=== PATIENT | male | born 1965 | race African-American/Black ===

== ENCOUNTER 2024-09-17 21:17 | Emergency (ER) | payer OTHER, SELFPAY ==
[2024-09-17 21:25] VITALS: BP 193/97; PULSE 75; RESP 20; TEMP 36.8; O2SAT 99
--- NOTE | 2024-09-17 21:42 | W.ED.GENAD ---
Discharge Plan Disposition Patient Disposition: Home Condition: Stable Discharge Details Clinical Impression: Medication refill, Diabetes Primary Care Provider: Beckie,Local ED Provider: Dolly Bradford Home Meds and New Rx's Prescriptions: Continued insulin glargine [Basaglar KwikPen U-100 Insulin] 100 unit/mL (3 mL) insulin pen 20 unit subcut QPM Qty: 15 0RF No Action insulin aspart U-100 [Novolog FlexPen U-100 Insulin] 100 unit/mL (3 mL) insulin pen 1 sliding scale dose subcut USEASDIRECTD lisinopril 40 mg tablet 40 mg PO DAILY Patient Comments: takes at HS Discharge Instructions Instructions: How to Use an Insulin Pen Additional Instructions: You were seen in the emergency department today because he lost your insulin pen. You had a dose of insulin provided for you here in the emergency department and I have sent a refill of your long-acting insulin to [facility] in [place], located at [address] [place] [address]. Please pick this medication up in the morning and continue to take all of your medications as prescribed by your doctor. You can always return to the emergency department for reevaluation if he develops symptoms. Thank you for allowing us to be part of your care. HPI General Mode of arrival: ambulatory. Date/Time Provider Initiated Documentation: 09/17/24 21:20. Limitations to Documentation: no limitations. Information obtained by: patient. HPI Narrative: HPI: This is a 58-year-old male patient with a past medical history significant for insulin-dependent diabetes who is presenting for evaluation for a medication refill. The patient is traveling from [place], states that he took his prescribed insulin last night but this afternoon noticed that his pen had become lost and was not present in his things. He states that he still has his sliding scale insulin, but does not have his long-acting. He is feeling completely well, and is without other acute concern. He is staying in [facility] overnight and will be able to stop at a pharmacy in the morning. Exam: Gen: Awake and alert, in no apparent distress HEENT: Non-icteric sclera Neck: Supple Lungs: No apparent respiratory distress, normal respiratory effort. CV: Appears well perfused, strong distal pulses Abdomen: Non-distended MSK: Moves 4 extremities without apparent limitation in ROM Skin: Visualized skin without rashes, cyanosis. Neuro: Normal Gait, no obvious focal deficits or facial asymmetry. Speaks in full, clear sentences. Psych: Appropriate for situation. MDM: This is a 58-year-old male patient presenting for medication refill. My differential includes but is not limited to no acute medical concerns, certainly considered hyperglycemia and hypoglycemia. The duration of time that he has been without insulin makes abnormalities such as diabetic ketoacidosis, euglycemic DKA, HHS highly unlikely. He is tolerating p.o. and I have no concern for dehydration, metabolic or electrolyte derangements. ED Course: I provided the patient with a dose of his long-acting insulin and did check his blood sugar here in the emergency department, which was 340. The patient states that he will use his sliding scale insulin as prescribed to manage his high blood glucose. A prescription for long-acting insulin was sent to the pharmacy in [place]. The patient understands that he will pick it up in the morning. At this time, the patient has had a full medical evaluation and is safe for discharge to home. They are hemodynamically stable, ambulatory, and tolerating PO. They are understanding of the follow-up plan and return precautions. They left our facility without incident. Dolly Bradford MD Related Data Home Medications ?Medication ?Instructions ?Recorded ?Confirmed insulin aspart U-100 100 unit/mL 1 sliding scale dose subcut 09/17/24 09/17/24 (3 mL) subcutaneous pen (Novolog USEASDIRECTD FlexPen U-100 Insulin aspart) insulin glargine 100 unit/mL (3 20 unit (0.2 mL) subcut QPM #15 mL 09/17/24 mL) subcutaneous pen (Basaglar KwikPen U-100 Insulin) lisinopril 40 mg tablet 40 mg PO DAILY 09/17/24 09/17/24 Previous Rx's ?Medication ?Instructions ?Recorded insulin glargine 100 unit/mL (3 20 unit (0.2 mL) subcut QPM #15 mL 09/17/24 mL) subcutaneous pen (Basaglar KwikPen U-100 Insulin) Allergies Allergy/AdvReac Type Severity Reaction Status Date / Time No Known Allergies Allergy Unverified 09/17/24 21:27 General Stated Complaint: RX Refill CAESAR: 5 Course Vital Signs Vital signs: Vital Signs Temperature 36.8 C 09/17/24 21:25 Pulse 75 09/17/24 21:25 Respiratory Rate 20 09/17/24 21:25 Blood Pressure 193/97 H 09/17/24 21:25 Pulse Oximetry 99 09/17/24 21:25 Temperature 36.8 C 09/17/24 21:25 Pulse 75 09/17/24 21:25 Respiratory Rate 20 09/17/24 21:25 Respiratory Effort Normal 09/17/24 21:27 Blood Pressure 193/97 H 09/17/24 21:25 Blood Pressure Position Sitting 09/17/24 21:25 Pulse Oximetry 99 09/17/24 21:25 Pain Level 0 09/17/24 21:25 Medical Decision Making Quality:SDOH Health Related Social Needs: No Data to Display PFSH All Active Problems (Updated 09/17/24 @ 21:43 by Dolly Bradford MD) Diabetes (Chronic) Medication refill (Acute) Social History Smoking/Tobacco Use Status: Never Smoking risk assessment performed?: Yes Alcohol Intake: never Substance use type: does not use Housing: house Do you feel safe at home: Yes Do you feel safe in your relationship?: Yes
[2024-09-17] MEDS: Insulin Glargine 100 UNITS/ML UNIT 20 UNITS SC (21:57)
== END 2024-09-17 21:56 | disposition home or self-care (01) ==
PROVIDERS: Emergency Provider Emergency Medicine; Visit Provider Emergency Medicine
DX: R73.9 Hyperglycemia, unspecified (principal); Z76.0 Encounter for issue of repeat prescription; I10 Essential (primary) hypertension
CPT/HCPCS: 36416; 82962; 99283; J1815